=== PATIENT | male | born 1935 | race African-American/Black ===

== ENCOUNTER 2017-12-12 16:36 | Inpatient (IN) ==
[2017-12-12] MEDS ORDERED: MORPHINE 2 MG/1 ML SYRINGE IV STA (17:14)
[2017-12-12] MEDS ORDERED: methylPREDNISolone SOD SUC 125 MG/2 ML VIAL IV STA (17:14)
[2017-12-12] MEDS ORDERED: FUROSEMIDE 100 MG/10 ML VIAL IV STA (17:14)
[2017-12-12] MEDS ORDERED: ONDANSETRON 4 MG/2 ML VIAL IV STA (17:14)
[2017-12-12] MEDS ORDERED: NITROGLYCERIN 2% OINT 1 INCH/GM PACK TOP STA (17:14)
[2017-12-12] MEDS ORDERED: ASPIRIN 325 MG TABLET PO STA (17:14)
[2017-12-12] MEDS ORDERED: cefTRIAXone 1,000 MG in SODIUM CHLORIDE 0.9% 100 ML IV STA (17:14)
[2017-12-12 17:23] LABS: Basophils % 0.1 % (0.0-0.8); Eosinophils % 0.1 % (0.00-10.9); Hematocrit 42.5 VOL% (42.0-52.0); Hemoglobin 13.8 GM/DL (14.0-18.0); Immature Granulocytes % 1.4 %; Immature Granulocytes Absolute 0.11 #; Lymphocytes # 0.8 10*3/uL (1.4-4.0); Lymphocytes % 10.7 % (21.2-54.2); Mean Corpuscular HGB Conc 32.5 GM/DL (32-36); Mean Corpuscular Hemoglobin 33 PG (27-34); Mean Corpuscular Volume 102.7 FL (87-102); Mean Platelet Volume 10.9 FL (9.6-12.0); Monocytes % 12.8 % (1.7-12.7); Neutrophils # 5.7 10*3/uL (1.4-7.4); Neutrophils % 74.9 % (38.7-73.9); Platelet Count 207 T/CUMM (130-400); Red Blood Count 4.14 MC/CUMM (3.8-5.5); Red Cell Distribution Width 13.6 % (9.3-17.3); White Blood Count 7.7 T/CUMM (4-12)
[2017-12-12] MEDS ORDERED: ALBUTEROL 2.5 MG/3 ML NEB RESP TX SCH (17:30)
[2017-12-12 17:37] LABS: INR 1.1; PT Patient Result 11.2 SECS
[2017-12-12 17:39] LABS: ABG HCO3 35.2 MMOL/L (20-26); ABG Oxygen Saturation 92.7 % (95-100); ABG PCO2 54.2 MM HG (35-48); ABG PO2 69.6 MM HG (80-95); ABG TCO2 36.8 MMOL/L (23-27)
[2017-12-12 17:40] LABS: Alanine Aminotransferase 18 U/L (16-61); Albumin 3.2 G/DL (3.4-5.0); Alkaline Phosphatase 57 U/L (45-117); Aspartate Amino Transferase 12 U/L (0-37); Blood Urea Nitrogen 31 MG/DL (7-18); Calcium 8.4 MG/DL (8.5-10.1); Glucose 80 MG/DL (74-106); Osmolality,Calculated 280.7 MOS/KG (273-304); Potassium 3.9 MMOL/L (3.5-5.1); Sodium 138 MMOL/L (136-145); Total Protein 6.6 G/DL (6.4-8.3); Troponin I Only 0.033 NG/ML (0.00-0.045)
[2017-12-12] MEDS ORDERED: NITROGLYCERIN 2% OINT 1 INCH/GM PACK TOP ONE (17:41)
[2017-12-12] MEDS ORDERED: cefTRIAXone 1,000 MG VIAL ONE (17:41)
[2017-12-12] MEDS ORDERED: ONDANSETRON 4 MG/2 ML VIAL ONE (17:41)
[2017-12-12] MEDS ORDERED: FUROSEMIDE 40 MG/4 ML VIAL ONE (17:41)
[2017-12-12] MEDS ORDERED: MORPHINE 2 MG/1 ML SYRINGE ONE (17:41)
[2017-12-12] MEDS ORDERED: FUROSEMIDE 20 MG/2 ML VIAL ONE (17:41)
[2017-12-12] MEDS ORDERED: ASPIRIN 325 MG TABLET ONE (17:42)
[2017-12-12] MEDS ORDERED: methylPREDNISolone SOD SUC 125 MG/2 ML VIAL ONE (17:42)
[2017-12-12 19:38] LABS: Apearance,Urine CLEAR (Clear); Bilirubin,Urine Negative (Negative); Blood, Urine Small mg/dL (Negative); Glucose,Urine (UA) Negative (Negative); Ketones,Urine Negative (Negative); Nitrite,Urine Negative (Negative); Protein,Urine Negative; RBC,Urine 1 /HPF (0-4); Urine Color Yellow (Yellow); Urine Specific Gravity 1.009 (1.001-1.035); Urine Urobilinogen < 2.0 EU/DL (0.2-1.0); WBC,Urine <1 /HPF (0-6)
[2017-12-12] MEDS ORDERED: ALBUTEROL/IPRATROPIUM 3 ML NEB RESP TX STA (19:54)
[2017-12-12] MEDS ORDERED: COLCHICINE 0.6 MG TABLET PO STA (21:27)
[2017-12-12] MEDS ORDERED: ONDANSETRON 4 MG/2 ML VIAL IV PRN (21:27)
[2017-12-12] MEDS ORDERED: ZALEPLON 5 MG CAPSULE PO PRN (21:27)
[2017-12-12] MEDS ORDERED: MORPHINE 2 MG/1 ML SYRINGE IV PRN (21:27)
[2017-12-12] MEDS ORDERED: COLCHICINE 0.6 MG TABLET ONE (23:06)
[2017-12-12] MEDS: SODIUM CHLORIDE 0.9% 1,000 ML IV SCH (23:18)
[2017-12-13] MEDS: ALBUTEROL/IPRATROPIUM 3 ML NEB RESP TX SCH ×4 (03:08→20:05)
[2017-12-13 04:27] LABS: Hematocrit 40.3 VOL% (42.0-52.0); Hemoglobin 13.1 GM/DL (14.0-18.0); Immature Granulocytes % 0.9 %; Immature Granulocytes Absolute 0.06 #; Lymphocytes # 0.3 10*3/uL (1.4-4.0); Lymphocytes % 4.4 % (21.2-54.2); Mean Corpuscular HGB Conc 32.5 GM/DL (32-36); Mean Corpuscular Hemoglobin 34 PG (27-34); Mean Corpuscular Volume 103.3 FL (87-102); Mean Platelet Volume 10.5 FL (9.6-12.0); Monocytes # 0.2 10*3/uL (0.11-0.8); Monocytes % 3.2 % (1.7-12.7); Neutrophils % 91.5 % (38.7-73.9); Platelet Count 204 T/CUMM (130-400); Red Cell Distribution Width 13.4 % (9.3-17.3); White Blood Count 6.5 T/CUMM (4-12)
[2017-12-13 05:02] LABS: Osmolality,Calculated 281.1 MOS/KG (273-304); Potassium 3.9 MMOL/L (3.5-5.1); Troponin I Only 0.031 NG/ML (0.00-0.045)
[2017-12-13 05:34] LABS: Lymphocytes 3 % (20-55); Segmented Neutrophils 93 % (50-85); Total Cells Counted 100
[2017-12-13 05:35] LABS: Giant Platelets Few; Hypochromasia 1+; Platelet Estimate Normal
[2017-12-13] MEDS: POTASSIUM CHLORIDE 20 MEQ TABLET PO SCH (10:31)
[2017-12-13] MEDS: CARVEDILOL 12.5 MG TABLET PO SCH ×2 (10:32→16:55)
[2017-12-13] MEDS: COLCHICINE 0.6 MG TABLET PO SCH (10:32)
[2017-12-13] MEDS: FUROSEMIDE 40 MG TABLET PO SCH (10:32)
[2017-12-13] MEDS: PANTOPRAZOLE 40 MG TABLET PO SCH (10:32)
[2017-12-13] MEDS: LOSARTAN 50 MG TABLET PO SCH (10:32)
[2017-12-13] MEDS: CHOLECALCIFEROL 1,000 UNIT TABLET PO SCH (10:32)
[2017-12-13] MEDS: SPIRONOLACTONE 25 MG TABLET PO SCH (10:32)
[2017-12-13] MEDS: SODIUM CHLORIDE 0.9% 1,000 ML IV SCH (16:56)
[2017-12-13] MEDS: methylPREDNISolone SOD SUC 40 MG/1 ML VIAL IV SCH (18:59)
[2017-12-13] MEDS: cefTRIAXone 1,000 MG in SYRINGE 1 EACH IV SCH (18:59)
[2017-12-13] MEDS ORDERED: HYDROCORTISONE 25 MG SUPP RECTAL PRN (20:10)
[2017-12-14] MEDS: ALBUTEROL/IPRATROPIUM 3 ML NEB RESP TX SCH ×4 (01:16→18:30)
[2017-12-14] MEDS: methylPREDNISolone SOD SUC 40 MG/1 ML VIAL IV SCH (01:40)
[2017-12-14 03:37] LABS: Calcium 8.5 MG/DL (8.5-10.1); Osmolality,Calculated 285.7 MOS/KG (273-304); Potassium 4.5 MMOL/L (3.5-5.1)
[2017-12-14] MEDS: CARVEDILOL 12.5 MG TABLET PO SCH ×2 (09:50→17:04)
[2017-12-14] MEDS: CHOLECALCIFEROL 1,000 UNIT TABLET PO SCH (09:50)
[2017-12-14] MEDS: FUROSEMIDE 40 MG TABLET PO SCH (09:50)
[2017-12-14] MEDS: PANTOPRAZOLE 40 MG TABLET PO SCH (09:50)
[2017-12-14] MEDS: LOSARTAN 50 MG TABLET PO SCH (09:50)
[2017-12-14] MEDS: COLCHICINE 0.6 MG TABLET PO SCH (09:50)
[2017-12-14] MEDS: POTASSIUM CHLORIDE 20 MEQ TABLET PO SCH (09:50)
[2017-12-14] MEDS: SPIRONOLACTONE 25 MG TABLET PO SCH (09:50)
[2017-12-14] MEDS: POLYETHYLENE GLYCOL POWDER 17 GM PACK PO SCH (09:50)
[2017-12-14] MEDS: cefTRIAXone 1,000 MG in SYRINGE 1 EACH IV SCH (17:04)
[2017-12-14] MEDS: SODIUM CHLORIDE 0.9% 1,000 ML IV SCH (20:15)
[2017-12-15] MEDS: ALBUTEROL/IPRATROPIUM 3 ML NEB RESP TX SCH ×2 (00:32→07:42)
[2017-12-15 08:32] LABS: Basophils % 0.1 % (0.0-0.8); Hematocrit 38.5 VOL% (42.0-52.0); Hemoglobin 12.4 GM/DL (14.0-18.0); Immature Granulocytes % 1.5 %; Immature Granulocytes Absolute 0.17 #; Lymphocytes # 1.1 10*3/uL (1.4-4.0); Lymphocytes % 9.3 % (21.2-54.2); Mean Corpuscular HGB Conc 32.2 GM/DL (32-36); Mean Corpuscular Hemoglobin 33 PG (27-34); Mean Corpuscular Volume 102.4 FL (87-102); Mean Platelet Volume 10.8 FL (9.6-12.0); Monocytes # 1.6 10*3/uL (0.11-0.8); Neutrophils # 8.5 10*3/uL (1.4-7.4); Neutrophils % 75.1 % (38.7-73.9); Platelet Count 175 T/CUMM (130-400); Red Blood Count 3.76 MC/CUMM (3.8-5.5); Red Cell Distribution Width 13.8 % (9.3-17.3); White Blood Count 11.3 T/CUMM (4-12)
[2017-12-15] MEDS: SODIUM CHLORIDE 0.9% 1,000 ML IV SCH (08:42)
[2017-12-15] MEDS: LOSARTAN 50 MG TABLET PO SCH (08:43)
[2017-12-15] MEDS: SPIRONOLACTONE 25 MG TABLET PO SCH (08:43)
[2017-12-15] MEDS: COLCHICINE 0.6 MG TABLET PO SCH (08:43)
[2017-12-15] MEDS: CARVEDILOL 12.5 MG TABLET PO SCH (08:43)
[2017-12-15] MEDS: FUROSEMIDE 40 MG TABLET PO SCH (08:44)
[2017-12-15] MEDS: POTASSIUM CHLORIDE 20 MEQ TABLET PO SCH (08:44)
[2017-12-15] MEDS: POLYETHYLENE GLYCOL POWDER 17 GM PACK PO SCH (08:44)
[2017-12-15] MEDS: CHOLECALCIFEROL 1,000 UNIT TABLET PO SCH (08:45)
[2017-12-15] MEDS: PANTOPRAZOLE 40 MG TABLET PO SCH (08:45)
[2017-12-15 12:58] VITALS: BP 123/62
== END 2017-12-15 14:45 | disposition home or self-care (01) | DRG 813 ==
LOC: EDBD → EDUNIT# → N.ED 16:36 → SUATTDRO 19:43 → N.EDINP 19:43 → N.2E 12-13 07:13
PROVIDERS: ADMIT Internal Medicine; ATTEND Pediatrics

== ENCOUNTER 2020-08-22 14:14 | Inpatient (IN) ==
[2020-08-22 16:48] LABS: Basophils % 0.3 % (0.0-0.8); Hematocrit 37.8 VOL% (42.0-52.0); Hemoglobin 12.1 GM/DL (14.0-18.0); Immature Granulocytes % 0.3 %; Immature Granulocytes Absolute 0.03 #; Lymphocytes # 1.4 10*3/uL (1.4-4.0); Lymphocytes % 15.6 % (21.2-54.2); Mean Corpuscular Volume 106.5 FL (87-102); Mean Platelet Volume 10.9 FL (9.6-12.0); Monocytes % 9.4 % (1.7-12.7); Neutrophils % 74.4 % (38.7-73.9); Platelet Count 195 T/CUMM (130-400); Red Blood Count 3.55 MC/CUMM (3.8-5.5); Red Cell Distribution Width 14.3 % (9.3-17.3); White Blood Count 8.6 T/CUMM (4-12)
[2020-08-22 17:24] LABS: Albumin 3.1 G/DL (3.4-5.0); Bilirubin,Total 0.7 MG/DL (0.2-1.0); Calcium 8.6 MG/DL (8.5-10.1); Total Protein 6.8 G/DL (6.4-8.3)
[2020-08-22 17:51] LABS: Bacteria,Urine Occasional /HPF (Few); Bilirubin,Urine Negative (Negative); Blood, Urine Small mg/dL (Negative); Glucose,Urine (UA) Negative (Negative); Hyaline Casts,Urine 3 /LPF (0-3); Ketones,Urine Negative (Negative); Mucus,Urine Occasional /LPF (Occasional); Nitrite,Urine Negative (Negative); Protein,Urine >=500 MG/DL; RBC,Urine 2 /HPF (0-4); Squamous Epithelial Cell,Urine Occasional /HPF (0-10); Urine Appearance CLEAR (Clear); Urine Color Amber (Yellow); Urine Specific Gravity 1.029 (1.001-1.035); WBC,Urine 2 /HPF (0-6)
[2020-08-22] MEDS ORDERED: GLUCAGON 1 MG VIAL IM PRN (22:12)
[2020-08-22] MEDS ORDERED: ONDANSETRON 4 MG/2 ML VIAL IV PRN (22:12)
[2020-08-22] MEDS ORDERED: DEXTROSE 50% 25 GM/50 ML VIAL IV PRN (22:12)
[2020-08-22] MEDS ORDERED: ACETAMINOPHEN 325 MG TABLET PO PRN (22:12)
[2020-08-22] MEDS ORDERED: CETIRIZINE 10 MG TABLET PO PRN (22:18)
[2020-08-22] MEDS ORDERED: NICOTINE 21 MG/24 HR PATCH TRANSDERM PRN (22:25)
[2020-08-22] MEDS ORDERED: LORazepam 2 MG/1 ML VIAL IV PRN (22:25)
[2020-08-22] MEDS: cefTRIAXone 1,000 MG in SYRINGE 1 EACH IV SCH (23:15)
[2020-08-22] MEDS: AZITHROMYCIN INJ 500 MG in SODIUM CHLORIDE 0.9% 250 ML IV SCH (23:20)
[2020-08-23] MEDS ORDERED: DEXTROSE 50% 25 GM/50 ML SYRINGE IV PRN (00:31)
[2020-08-23 05:39] LABS: Basophils % 0.3 % (0.0-0.8); Hematocrit 33.7 VOL% (42.0-52.0); Hemoglobin 10.6 GM/DL (14.0-18.0); Immature Granulocytes % 0.3 %; Immature Granulocytes Absolute 0.02 #; Lymphocytes # 1.2 10*3/uL (1.4-4.0); Lymphocytes % 15.6 % (21.2-54.2); Mean Corpuscular HGB Conc 31.5 GM/DL (32-36); Mean Platelet Volume 10.9 FL (9.6-12.0); Monocytes % 9.8 % (1.7-12.7); Platelet Count 174 T/CUMM (130-400); Red Blood Count 3.15 MC/CUMM (3.8-5.5); Red Cell Distribution Width 14.3 % (9.3-17.3); White Blood Count 7.7 T/CUMM (4-12)
[2020-08-23 05:50] LABS: Albumin 2.7 G/DL (3.4-5.0); Bilirubin,Total 0.7 MG/DL (0.2-1.0); Calcium 8.5 MG/DL (8.5-10.1); Osmolality,Calculated 283.1 MOS/KG (273-304); Risk Ratio 3.21; Total Protein 6.5 G/DL (6.4-8.3); VLDL CHOLESTEROL 17.6 MG/DL
[2020-08-23] MEDS: FUROSEMIDE 40 MG/4 ML VIAL IV SCH ×2 (07:55→16:09)
[2020-08-23] MEDS ORDERED: NON-FORMULARY MEDICATION (Losartan 100 mg Tablet) PO SCH (09:00)
[2020-08-23] MEDS: ZINC SULFATE 220 MG CAPSULE PO SCH (09:05)
[2020-08-23] MEDS: CYANOCOBALAMIN 1000 MCG/1 ML VIAL IM SCH (09:05)
[2020-08-23] MEDS: CHOLECALCIFEROL 1,000 UNIT TABLET PO SCH (09:06)
[2020-08-23] MEDS: ASCORBIC ACID 500 MG TABLET PO SCH ×2 (09:06→20:38)
[2020-08-23] MEDS: THIAMINE 100 MG TABLET PO SCH (09:06)
[2020-08-23] MEDS: FOLIC ACID 1 MG TABLET PO SCH (09:06)
[2020-08-23] MEDS: APIXABAN 2.5 MG TABLET PO SCH ×2 (09:06→20:40)
[2020-08-23] MEDS: LOSARTAN 50 MG TABLET PO SCH (09:07)
[2020-08-23] MEDS: MULTIVITAMIN (CENTRUM) TABLET PO SCH (09:07)
[2020-08-23] MEDS: carvediloL 25 MG TABLET PO SCH ×2 (09:07→20:38)
[2020-08-23] MEDS: SPIRONOLACTONE 25 MG TABLET PO SCH (09:07)
[2020-08-23] MEDS: DEXAMETHASONE 4 MG/1 ML VIAL IV SCH (09:08)
[2020-08-23] MEDS: PANTOPRAZOLE 40 MG TABLET PO SCH (09:11)
[2020-08-23] MEDS: AZITHROMYCIN INJ 500 MG in SODIUM CHLORIDE 0.9% 250 ML IV SCH (22:57)
[2020-08-23] MEDS: cefTRIAXone 1,000 MG in SYRINGE 1 EACH IV SCH (22:57)
[2020-08-24] MEDS: ALBUTEROL INHALER 18 GM INH SCH ×4 (00:32→18:15)
[2020-08-24 05:45] LABS: Basophils % 0.1 % (0.0-0.8); Hemoglobin 10.6 GM/DL (14.0-18.0); Immature Granulocytes % 0.5 %; Immature Granulocytes Absolute 0.05 #; Lymphocytes # 0.8 10*3/uL (1.4-4.0); Lymphocytes % 7.1 % (21.2-54.2); Mean Corpuscular HGB Conc 32.1 GM/DL (32-36); Mean Corpuscular Volume 107.1 FL (87-102); Mean Platelet Volume 10.6 FL (9.6-12.0); Monocytes % 6.3 % (1.7-12.7); Platelet Count 166 T/CUMM (130-400); Red Blood Count 3.08 MC/CUMM (3.8-5.5); Red Cell Distribution Width 14.4 % (9.3-17.3); White Blood Count 11.1 T/CUMM (4-12)
[2020-08-24 05:59] LABS: INR 1.1; PT Patient Result 11.9 SECS (9.8-11.9)
[2020-08-24 06:35] LABS: Calcium 8.6 MG/DL (8.5-10.1); Osmolality,Calculated 285.3 MOS/KG (273-304)
[2020-08-24 06:53] LABS: Troponin I 0.032 NG/ML (0.00-0.045)
[2020-08-24 06:54] LABS: Ferritin 170.1 ng/ml (26-388)
[2020-08-24 08:03] LABS: Sedimentation Rate-Westergren 37 MM/HR (0-20)
[2020-08-24] MEDS: DEXAMETHASONE 4 MG/1 ML VIAL IV SCH (09:38)
[2020-08-24] MEDS: ZINC SULFATE 220 MG CAPSULE PO SCH (09:40)
[2020-08-24] MEDS: PANTOPRAZOLE 40 MG TABLET PO SCH (09:40)
[2020-08-24] MEDS: THIAMINE 100 MG TABLET PO SCH (09:40)
[2020-08-24] MEDS: FUROSEMIDE 40 MG/4 ML VIAL IV SCH ×2 (09:40→16:24)
[2020-08-24] MEDS: CHOLECALCIFEROL 1,000 UNIT TABLET PO SCH (09:40)
[2020-08-24] MEDS: carvediloL 25 MG TABLET PO SCH (09:40)
[2020-08-24] MEDS: MULTIVITAMIN (CENTRUM) TABLET PO SCH (09:40)
[2020-08-24] MEDS: APIXABAN 2.5 MG TABLET PO SCH ×2 (09:40→20:45)
[2020-08-24] MEDS: CYANOCOBALAMIN 1000 MCG/1 ML VIAL IM SCH (09:40)
[2020-08-24] MEDS: SPIRONOLACTONE 25 MG TABLET PO SCH (09:40)
[2020-08-24] MEDS: FOLIC ACID 1 MG TABLET PO SCH (09:40)
[2020-08-24] MEDS: ASCORBIC ACID 500 MG TABLET PO SCH ×2 (09:40→20:46)
[2020-08-24] MEDS: LOSARTAN 50 MG TABLET PO SCH (10:08)
[2020-08-24] MEDS: AZITHROMYCIN 250 MG TABLET PO SCH (20:46)
[2020-08-24] MEDS: cefTRIAXone 1,000 MG in SYRINGE 1 EACH IV SCH (22:02)
[2020-08-25] MEDS: ALBUTEROL INHALER 18 GM INH SCH ×4 (00:25→19:25)
[2020-08-25 06:03] LABS: Basophils % 0.1 % (0.0-0.8); Hematocrit 33.5 VOL% (42.0-52.0); Hemoglobin 10.6 GM/DL (14.0-18.0); Immature Granulocytes % 0.5 %; Immature Granulocytes Absolute 0.06 #; Lymphocytes # 0.8 10*3/uL (1.4-4.0); Lymphocytes % 5.9 % (21.2-54.2); Mean Corpuscular HGB Conc 31.6 GM/DL (32-36); Mean Corpuscular Volume 106.3 FL (87-102); Mean Platelet Volume 10.8 FL (9.6-12.0); Monocytes % 4.4 % (1.7-12.7); Neutrophils % 89.1 % (38.7-73.9); Platelet Count 172 T/CUMM (130-400); Red Blood Count 3.15 MC/CUMM (3.8-5.5); Red Cell Distribution Width 14.6 % (9.3-17.3); White Blood Count 12.8 T/CUMM (4-12)
[2020-08-25 06:14] LABS: INR 1.1; PT Patient Result 11.9 SECS (9.8-11.9)
[2020-08-25 06:36] LABS: Calcium 8.6 MG/DL (8.5-10.1); Ferritin 205.1 ng/ml (26-388); Osmolality,Calculated 284.4 MOS/KG (273-304)
[2020-08-25] MEDS: CHOLECALCIFEROL 1,000 UNIT TABLET PO SCH (09:15)
[2020-08-25] MEDS: DEXAMETHASONE 4 MG/1 ML VIAL IV SCH (09:15)
[2020-08-25] MEDS: MULTIVITAMIN (CENTRUM) TABLET PO SCH (09:15)
[2020-08-25] MEDS: LOSARTAN 50 MG TABLET PO SCH (09:15)
[2020-08-25] MEDS: SPIRONOLACTONE 25 MG TABLET PO SCH (09:15)
[2020-08-25] MEDS: ASCORBIC ACID 500 MG TABLET PO SCH ×2 (09:15→21:08)
[2020-08-25] MEDS: APIXABAN 2.5 MG TABLET PO SCH ×2 (09:15→21:09)
[2020-08-25] MEDS: THIAMINE 100 MG TABLET PO SCH (09:15)
[2020-08-25] MEDS: ZINC SULFATE 220 MG CAPSULE PO SCH (09:15)
[2020-08-25] MEDS: CYANOCOBALAMIN 1000 MCG/1 ML VIAL IM SCH (09:15)
[2020-08-25] MEDS: PANTOPRAZOLE 40 MG TABLET PO SCH (09:15)
[2020-08-25] MEDS: FOLIC ACID 1 MG TABLET PO SCH (09:15)
[2020-08-25] MEDS: FUROSEMIDE 40 MG TABLET PO SCH (16:55)
[2020-08-25] MEDS: AZITHROMYCIN 250 MG TABLET PO SCH (21:09)
[2020-08-25] MEDS: guaiFENesin/DM ER 600-30 MG TABLET PO PRN (21:09)
[2020-08-25] MEDS: cefTRIAXone 1,000 MG in SYRINGE 1 EACH IV SCH (23:24)
[2020-08-26] MEDS: ALBUTEROL INHALER 18 GM INH SCH ×4 (01:05→18:08)
[2020-08-26 04:49] LABS: Basophils % 0.1 % (0.0-0.8); Hematocrit 34.6 VOL% (42.0-52.0); Hemoglobin 10.9 GM/DL (14.0-18.0); Immature Granulocytes % 0.7 %; Immature Granulocytes Absolute 0.09 #; Lymphocytes # 0.7 10*3/uL (1.4-4.0); Lymphocytes % 5.5 % (21.2-54.2); Mean Corpuscular HGB Conc 31.5 GM/DL (32-36); Mean Corpuscular Volume 107.8 FL (87-102); Mean Platelet Volume 10.9 FL (9.6-12.0); Monocytes % 6.3 % (1.7-12.7); Neutrophils % 87.4 % (38.7-73.9); Platelet Count 189 T/CUMM (130-400); Red Blood Count 3.21 MC/CUMM (3.8-5.5); Red Cell Distribution Width 14.4 % (9.3-17.3); White Blood Count 12.7 T/CUMM (4-12)
[2020-08-26 04:51] LABS: INR 1.1; PT Patient Result 11.9 SECS (9.8-11.9)
[2020-08-26 05:12] LABS: Calcium 8.5 MG/DL (8.5-10.1); Osmolality,Calculated 283.7 MOS/KG (273-304)
[2020-08-26 05:18] LABS: Calcium 8.4 MG/DL (8.5-10.1); Ferritin 173.8 ng/ml (26-388); Osmolality,Calculated 284.7 MOS/KG (273-304)
[2020-08-26] MEDS: FUROSEMIDE 40 MG TABLET PO SCH ×2 (09:53→16:58)
[2020-08-26] MEDS: APIXABAN 2.5 MG TABLET PO SCH ×2 (09:54→20:06)
[2020-08-26] MEDS: SPIRONOLACTONE 25 MG TABLET PO SCH (09:54)
[2020-08-26] MEDS: FOLIC ACID 1 MG TABLET PO SCH (09:54)
[2020-08-26] MEDS: THIAMINE 100 MG TABLET PO SCH (09:54)
[2020-08-26] MEDS: CHOLECALCIFEROL 1,000 UNIT TABLET PO SCH (09:54)
[2020-08-26] MEDS: MULTIVITAMIN (CENTRUM) TABLET PO SCH (09:54)
[2020-08-26] MEDS: CYANOCOBALAMIN 1000 MCG/1 ML VIAL IM SCH (09:54)
[2020-08-26] MEDS: DEXAMETHASONE 4 MG/1 ML VIAL IV SCH (10:00)
[2020-08-26] MEDS: ASCORBIC ACID 500 MG TABLET PO SCH (10:00)
[2020-08-26] MEDS: carvediloL 12.5 MG TABLET PO SCH (16:58)
[2020-08-26] MEDS: AZITHROMYCIN 250 MG TABLET PO SCH (20:06)
[2020-08-26] MEDS: guaiFENesin/DM ER 600-30 MG TABLET PO PRN (20:06)
[2020-08-26] MEDS: cefTRIAXone 1,000 MG in SYRINGE 1 EACH IV SCH (22:10)
[2020-08-27] MEDS: ALBUTEROL INHALER 18 GM INH SCH ×2 (00:26→06:05)
[2020-08-27 06:50] LABS: Basophils % 0.1 % (0.0-0.8); Hematocrit 34.4 VOL% (42.0-52.0); Hemoglobin 10.9 GM/DL (14.0-18.0); Immature Granulocytes % 0.4 %; Immature Granulocytes Absolute 0.04 #; Lymphocytes # 1.4 10*3/uL (1.4-4.0); Lymphocytes % 15.4 % (21.2-54.2); Mean Corpuscular HGB Conc 31.7 GM/DL (32-36); Mean Corpuscular Volume 106.8 FL (87-102); Mean Platelet Volume 11.4 FL (9.6-12.0); Monocytes % 11.1 % (1.7-12.7); Platelet Count 185 T/CUMM (130-400); Red Blood Count 3.22 MC/CUMM (3.8-5.5); Red Cell Distribution Width 14.6 % (9.3-17.3); White Blood Count 9.3 T/CUMM (4-12)
[2020-08-27 07:19] LABS: Calcium 8.2 MG/DL (8.5-10.1); Ferritin 214.2 ng/ml (26-388); Osmolality,Calculated 287.5 MOS/KG (273-304)
[2020-08-27 08:23] VITALS: BP 109/58
[2020-08-27] MEDS: FOLIC ACID 1 MG TABLET PO SCH (08:43)
[2020-08-27] MEDS: APIXABAN 2.5 MG TABLET PO SCH (08:43)
[2020-08-27] MEDS: SPIRONOLACTONE 25 MG TABLET PO SCH (08:43)
[2020-08-27] MEDS: THIAMINE 100 MG TABLET PO SCH (08:43)
[2020-08-27] MEDS: CHOLECALCIFEROL 1,000 UNIT TABLET PO SCH (08:44)
[2020-08-27] MEDS: carvediloL 12.5 MG TABLET PO SCH (08:44)
[2020-08-27] MEDS: CYANOCOBALAMIN 1000 MCG/1 ML VIAL IM SCH (08:44)
[2020-08-27] MEDS: MULTIVITAMIN (CENTRUM) TABLET PO SCH (08:44)
[2020-08-27] MEDS: FUROSEMIDE 40 MG TABLET PO SCH (08:44)
[2020-08-27] MEDS ORDERED: LOSARTAN 25 MG TABLET PO SCH (09:00)
[2020-08-27] MEDS ORDERED: DEXAMETHASONE 4 MG TABLET PO SCH (09:00)
== END 2020-08-27 11:55 | disposition home health service (06) | DRG 291 ==
LOC: N.ED 14:14 → N.EDINP 22:11 → N.2E 08-23 12:06 → N.5E 08-25 18:12
PROVIDERS: ADMIT Internal Medicine; ATTEND Internal Medicine

== ENCOUNTER 2021-01-27 16:47 | Inpatient (IN) ==
[2021-01-27 17:56] LABS: Basophils % 0.1 % (0.0-0.8); Hematocrit 33.2 VOL% (42.0-52.0); Hemoglobin 10.4 GM/DL (14.0-18.0); Immature Granulocytes % 0.4 %; Immature Granulocytes Absolute 0.03 #; Lymphocytes # 0.9 10*3/uL (1.4-4.0); Lymphocytes % 12.3 % (21.2-54.2); Mean Corpuscular HGB Conc 31.3 GM/DL (32-36); Mean Corpuscular Volume 107.4 FL (87-102); Mean Platelet Volume 10.5 FL (9.6-12.0); Monocytes % 13.9 % (1.7-12.7); Neutrophils % 73.3 % (38.7-73.9); Platelet Count 276 T/CUMM (130-400); Red Blood Count 3.09 MC/CUMM (3.8-5.5); Red Cell Distribution Width 15.1 % (9.3-17.3); White Blood Count 7.3 T/CUMM (4-12)
[2021-01-27 18:14] LABS: INR 1.2; PT Patient Result 12.4 SECS (9.8-11.9)
[2021-01-27 18:18] LABS: Albumin 2.6 G/DL (3.4-5.0); Bilirubin,Total 0.4 MG/DL (0.2-1.0); Calcium 8.7 MG/DL (8.5-10.1); Osmolality,Calculated 272.1 MOS/KG (273-304); Potassium 3.9 MMOL/L (3.5-5.1); Total Protein 7.1 G/DL (5.0-7.5)
[2021-01-27] MEDS ORDERED: ONDANSETRON 4 MG/2 ML VIAL IV ONE (19:18)
[2021-01-27] MEDS ORDERED: MORPHINE 4 MG/1 ML VIAL IV STA (19:18)
[2021-01-27] MEDS ORDERED: DEXTROSE 50% 25 GM/50 ML VIAL IV PRN (23:33)
[2021-01-27] MEDS ORDERED: ONDANSETRON 4 MG/2 ML VIAL IV PRN (23:33)
[2021-01-27] MEDS ORDERED: GLUCAGON 1 MG VIAL IM PRN (23:33)
[2021-01-27] MEDS ORDERED: hydrALAZINE 20 MG/1 ML VIAL IV PRN (23:33)
[2021-01-27] MEDS ORDERED: MORPHINE 4 MG/1 ML VIAL IV PRN (23:33)
[2021-01-27] MEDS ORDERED: DOCUSATE SODIUM 100 MG CAPSULE PO PRN (23:33)
[2021-01-27] MEDS ORDERED: ACETAMINOPHEN 325 MG TABLET PO PRN (23:33)
[2021-01-27] MEDS ORDERED: FUROSEMIDE 40 MG/4 ML VIAL IV ONE (23:37)
[2021-01-27] MEDS ORDERED: ALBUTEROL 2.5 MG/3 ML NEB RESP TX PRN (23:38)
[2021-01-28] MEDS: carvediloL 12.5 MG TABLET PO SCH ×3 (00:33→16:03)
[2021-01-28] MEDS: APIXABAN 2.5 MG TABLET PO SCH ×3 (00:33→21:09)
[2021-01-28] MEDS ORDERED: METHOCARBAMOL 750 MG TABLET PO PRN (02:06)
[2021-01-28 06:11] LABS: Basophils % 0.7 % (0.0-0.8); Hematocrit 30.7 VOL% (42.0-52.0); Hemoglobin 9.6 GM/DL (14.0-18.0); Immature Granulocytes % 0.3 %; Immature Granulocytes Absolute 0.02 #; Lymphocytes # 1.3 10*3/uL (1.4-4.0); Lymphocytes % 22.1 % (21.2-54.2); Mean Corpuscular HGB Conc 31.3 GM/DL (32-36); Mean Corpuscular Volume 106.2 FL (87-102); Mean Platelet Volume 10.2 FL (9.6-12.0); Monocytes % 17.4 % (1.7-12.7); Neutrophils % 59.5 % (38.7-73.9); Platelet Count 238 T/CUMM (130-400); Red Blood Count 2.89 MC/CUMM (3.8-5.5); Red Cell Distribution Width 14.8 % (9.3-17.3); White Blood Count 5.9 T/CUMM (4-12)
[2021-01-28 06:38] LABS: Calcium 8.4 MG/DL (8.5-10.1); Potassium 3.5 MMOL/L (3.5-5.1)
[2021-01-28 07:02] LABS: Anisocytosis 2+; Eosinophils 1 % (0-10); Lymphocytes 21 % (20-55); Macrocytosis 2+; Platelet Estimate Normal; Segmented Neutrophils 59 % (50-85); Total Cells Counted 100
[2021-01-28] MEDS: ALBUTEROL/IPRATROPIUM 3 ML NEB RESP TX SCH ×4 (07:05→19:21)
[2021-01-28] MEDS: CHOLECALCIFEROL 1,000 UNIT TABLET PO SCH (09:23)
[2021-01-28] MEDS: POTASSIUM CHLORIDE 20 MEQ TABLET PO SCH (09:24)
[2021-01-28] MEDS: LOSARTAN 25 MG TABLET PO SCH (09:24)
[2021-01-28] MEDS: FOLIC ACID 1 MG TABLET PO SCH (09:24)
[2021-01-28] MEDS: FUROSEMIDE 40 MG/4 ML VIAL IV SCH ×2 (09:31→15:54)
[2021-01-28] MEDS: THIAMINE 100 MG TABLET PO SCH (11:27)
[2021-01-29 05:47] LABS: Basophils % 0.4 % (0.0-0.8); Hematocrit 29.9 VOL% (42.0-52.0); Hemoglobin 9.3 GM/DL (14.0-18.0); Immature Granulocytes % 0.4 %; Immature Granulocytes Absolute 0.02 #; Mean Corpuscular HGB Conc 31.1 GM/DL (32-36); Mean Corpuscular Volume 107.2 FL (87-102); Mean Platelet Volume 10.9 FL (9.6-12.0); Monocytes % 17.8 % (1.7-12.7); Neutrophils % 62.4 % (38.7-73.9); Platelet Count 236 T/CUMM (130-400); Red Blood Count 2.79 MC/CUMM (3.8-5.5); Red Cell Distribution Width 14.6 % (9.3-17.3); White Blood Count 5.2 T/CUMM (4-12)
[2021-01-29 06:00] LABS: Calcium 8.7 MG/DL (8.5-10.1); Osmolality,Calculated 270.4 MOS/KG (273-304); Potassium 3.7 MMOL/L (3.5-5.1)
[2021-01-29 07:23] LABS: Folate 13.7 NG/ML (5.38-24.0)
[2021-01-29] MEDS: ALBUTEROL/IPRATROPIUM 3 ML NEB RESP TX SCH ×4 (07:27→19:17)
[2021-01-29 08:06] LABS: Anisocytosis 1+; Lymphocytes 21 % (20-55); Macrocytosis 1+; Platelet Estimate Normal; Segmented Neutrophils 61 % (50-85); Total Cells Counted 100
[2021-01-29] MEDS: CHOLECALCIFEROL 1,000 UNIT TABLET PO SCH (09:30)
[2021-01-29] MEDS: FOLIC ACID 1 MG TABLET PO SCH (09:31)
[2021-01-29] MEDS: POTASSIUM CHLORIDE 20 MEQ TABLET PO SCH (09:31)
[2021-01-29] MEDS: carvediloL 12.5 MG TABLET PO SCH ×2 (09:31→16:56)
[2021-01-29] MEDS: THIAMINE 100 MG TABLET PO SCH (09:31)
[2021-01-29] MEDS: LOSARTAN 25 MG TABLET PO SCH (09:32)
[2021-01-29] MEDS: APIXABAN 2.5 MG TABLET PO SCH ×2 (09:32→21:02)
[2021-01-29] MEDS: FUROSEMIDE 40 MG/4 ML VIAL IV SCH ×2 (09:40→17:01)
[2021-01-29] MEDS: DICLOFENAC 1% GEL 100 GM TUBE TOP SCH ×2 (14:23→21:02)
[2021-01-30 05:31] LABS: Basophils % 0.4 % (0.0-0.8); Hematocrit 29.1 VOL% (42.0-52.0); Hemoglobin 9.4 GM/DL (14.0-18.0); Immature Granulocytes % 0.4 %; Immature Granulocytes Absolute 0.02 #; Lymphocytes % 21.1 % (21.2-54.2); Mean Corpuscular HGB Conc 32.3 GM/DL (32-36); Mean Corpuscular Volume 103.6 FL (87-102); Mean Platelet Volume 10.7 FL (9.6-12.0); Monocytes % 16.8 % (1.7-12.7); Neutrophils % 61.3 % (38.7-73.9); Platelet Count 221 T/CUMM (130-400); Red Blood Count 2.81 MC/CUMM (3.8-5.5); Red Cell Distribution Width 14.6 % (9.3-17.3); White Blood Count 4.9 T/CUMM (4-12)
[2021-01-30 05:53] LABS: Hypochromasia 1+; Lymphocytes 26 % (20-55); Microcytosis 1+; Platelet Estimate Adequate; Segmented Neutrophils 61 % (50-85); Total Cells Counted 100
[2021-01-30 05:54] LABS: Calcium 8.5 MG/DL (8.5-10.1); Osmolality,Calculated 275.1 MOS/KG (273-304); Potassium 3.6 MMOL/L (3.5-5.1)
[2021-01-30] MEDS ORDERED: MAGNESIUM SULF RIDER 2 GM in PREMIX 1 EACH IV ONE (08:30)
[2021-01-30] MEDS: carvediloL 12.5 MG TABLET PO SCH ×2 (08:39→18:28)
[2021-01-30] MEDS: LOSARTAN 25 MG TABLET PO SCH (08:39)
[2021-01-30] MEDS: FUROSEMIDE 40 MG/4 ML VIAL IV SCH ×4 (08:39→18:32)
[2021-01-30] MEDS: CHOLECALCIFEROL 1,000 UNIT TABLET PO SCH (08:40)
[2021-01-30] MEDS: FOLIC ACID 1 MG TABLET PO SCH (08:40)
[2021-01-30] MEDS: THIAMINE 100 MG TABLET PO SCH (08:40)
[2021-01-30] MEDS: POTASSIUM CHLORIDE 20 MEQ TABLET PO SCH (08:40)
[2021-01-30] MEDS: DICLOFENAC 1% GEL 100 GM TUBE TOP SCH ×3 (08:40→21:44)
[2021-01-30] MEDS: APIXABAN 2.5 MG TABLET PO SCH ×2 (08:40→21:44)
[2021-01-30] MEDS: ALBUTEROL/IPRATROPIUM 3 ML NEB RESP TX SCH ×4 (08:58→19:31)
[2021-01-30] MEDS ORDERED: DOCUSATE SODIUM 100 MG CAPSULE PO PRN (16:09)
[2021-01-30] MEDS ORDERED: POTASSIUM CHLORIDE 20 MEQ TABLET PO ONE (17:00)
[2021-01-30] MEDS ORDERED: MAGNESIUM CITRATE 300 ML BOTTLE PO ONE (17:00)
[2021-01-30] MEDS: SENNA 8.6 MG TABLET PO SCH (21:44)
[2021-01-30] MEDS: POLYETHYLENE GLYCOL POWDER 17 GM PACK PO SCH (21:44)
[2021-01-31 03:57] LABS: Basophils % 0.2 % (0.0-0.8); Hematocrit 29.6 VOL% (42.0-52.0); Hemoglobin 9.6 GM/DL (14.0-18.0); Immature Granulocytes % 0.3 %; Immature Granulocytes Absolute 0.02 #; Lymphocytes # 1.1 10*3/uL (1.4-4.0); Lymphocytes % 18.1 % (21.2-54.2); Mean Corpuscular HGB Conc 32.4 GM/DL (32-36); Mean Corpuscular Volume 105.7 FL (87-102); Mean Platelet Volume 10.6 FL (9.6-12.0); Monocytes % 16.4 % (1.7-12.7); Platelet Count 222 T/CUMM (130-400); Red Cell Distribution Width 14.8 % (9.3-17.3)
[2021-01-31 04:20] LABS: Hypochromasia 1+; Lymphocytes 17 % (20-55); Segmented Neutrophils 72 % (50-85); Total Cells Counted 100
[2021-01-31 04:21] LABS: Atypical Lymphocytes Few; Macrocytosis 1+
[2021-01-31 04:30] LABS: Calcium 8.5 MG/DL (8.5-10.1); Osmolality,Calculated 273.4 MOS/KG (273-304); Potassium 4.7 MMOL/L (3.5-5.1)
[2021-01-31] MEDS: ALBUTEROL/IPRATROPIUM 3 ML NEB RESP TX SCH ×2 (07:50→20:07)
[2021-01-31] MEDS: LOSARTAN 25 MG TABLET PO SCH (08:40)
[2021-01-31] MEDS: APIXABAN 2.5 MG TABLET PO SCH ×2 (08:40→21:10)
[2021-01-31] MEDS: carvediloL 12.5 MG TABLET PO SCH ×2 (08:40→16:03)
[2021-01-31] MEDS: DICLOFENAC 1% GEL 100 GM TUBE TOP SCH ×3 (08:41→21:11)
[2021-01-31] MEDS: POTASSIUM CHLORIDE 20 MEQ TABLET PO SCH (08:41)
[2021-01-31] MEDS: POLYETHYLENE GLYCOL POWDER 17 GM PACK PO SCH ×3 (08:41→21:11)
[2021-01-31] MEDS: CHOLECALCIFEROL 1,000 UNIT TABLET PO SCH (08:41)
[2021-01-31] MEDS: FOLIC ACID 1 MG TABLET PO SCH (08:41)
[2021-01-31] MEDS: THIAMINE 100 MG TABLET PO SCH (08:41)
[2021-01-31] MEDS: FUROSEMIDE 40 MG/4 ML VIAL IV SCH (15:33)
[2021-01-31] MEDS: SENNA 8.6 MG TABLET PO SCH (21:10)
[2021-02-01 06:12] LABS: Basophils % 0.3 % (0.0-0.8); Hematocrit 29.7 VOL% (42.0-52.0); Hemoglobin 9.3 GM/DL (14.0-18.0); Immature Granulocytes % 0.5 %; Immature Granulocytes Absolute 0.03 #; Lymphocytes # 1.1 10*3/uL (1.4-4.0); Lymphocytes % 18.8 % (21.2-54.2); Mean Corpuscular HGB Conc 31.3 GM/DL (32-36); Mean Corpuscular Volume 107.6 FL (87-102); Mean Platelet Volume 11.3 FL (9.6-12.0); Monocytes % 14.3 % (1.7-12.7); Neutrophils % 66.1 % (38.7-73.9); Platelet Count 210 T/CUMM (130-400); Red Blood Count 2.76 MC/CUMM (3.8-5.5); Red Cell Distribution Width 14.9 % (9.3-17.3); White Blood Count 6.1 T/CUMM (4-12)
[2021-02-01 06:20] LABS: Calcium 8.8 MG/DL (8.5-10.1); Osmolality,Calculated 277.1 MOS/KG (273-304); Potassium 4.6 MMOL/L (3.5-5.1)
[2021-02-01] MEDS: ALBUTEROL/IPRATROPIUM 3 ML NEB RESP TX SCH ×4 (07:29→19:30)
[2021-02-01] MEDS: LOSARTAN 25 MG TABLET PO SCH (08:08)
[2021-02-01] MEDS: carvediloL 12.5 MG TABLET PO SCH ×2 (09:20→17:14)
[2021-02-01] MEDS: POTASSIUM CHLORIDE 20 MEQ TABLET PO SCH (09:22)
[2021-02-01] MEDS: POLYETHYLENE GLYCOL POWDER 17 GM PACK PO SCH ×2 (09:22→14:59)
[2021-02-01] MEDS: FUROSEMIDE 80 MG TABLET PO SCH ×2 (09:22→15:34)
[2021-02-01] MEDS: CHOLECALCIFEROL 1,000 UNIT TABLET PO SCH (09:22)
[2021-02-01] MEDS: FOLIC ACID 1 MG TABLET PO SCH (09:22)
[2021-02-01] MEDS: APIXABAN 2.5 MG TABLET PO SCH ×2 (09:22→21:05)
[2021-02-01] MEDS: THIAMINE 100 MG TABLET PO SCH (09:23)
[2021-02-01] MEDS: DICLOFENAC 1% GEL 100 GM TUBE TOP SCH ×3 (09:23→21:05)
[2021-02-01] MEDS: SENNA 8.6 MG TABLET PO SCH (21:05)
[2021-02-02 05:33] LABS: Basophils % 0.4 % (0.0-0.8); Hematocrit 29.6 VOL% (42.0-52.0); Hemoglobin 9.3 GM/DL (14.0-18.0); Immature Granulocytes % 0.2 %; Immature Granulocytes Absolute 0.01 #; Lymphocytes # 0.9 10*3/uL (1.4-4.0); Lymphocytes % 18.4 % (21.2-54.2); Mean Corpuscular HGB Conc 31.4 GM/DL (32-36); Mean Corpuscular Volume 105.7 FL (87-102); Mean Platelet Volume 10.9 FL (9.6-12.0); Monocytes % 14.1 % (1.7-12.7); Neutrophils % 66.9 % (38.7-73.9); Platelet Count 225 T/CUMM (130-400); Red Cell Distribution Width 15.2 % (9.3-17.3); White Blood Count 5.1 T/CUMM (4-12)
[2021-02-02 05:58] LABS: Calcium 8.9 MG/DL (8.5-10.1); Osmolality,Calculated 272.4 MOS/KG (273-304); Potassium 4.4 MMOL/L (3.5-5.1)
[2021-02-02] MEDS: ALBUTEROL/IPRATROPIUM 3 ML NEB RESP TX SCH ×5 (06:44→19:58)
[2021-02-02] MEDS: POLYETHYLENE GLYCOL POWDER 17 GM PACK PO SCH (09:03)
[2021-02-02] MEDS: CHOLECALCIFEROL 1,000 UNIT TABLET PO SCH (09:04)
[2021-02-02] MEDS: carvediloL 12.5 MG TABLET PO SCH ×2 (09:04→16:43)
[2021-02-02] MEDS: POTASSIUM CHLORIDE 20 MEQ TABLET PO SCH (09:04)
[2021-02-02] MEDS: FOLIC ACID 1 MG TABLET PO SCH (09:04)
[2021-02-02] MEDS: FUROSEMIDE 80 MG TABLET PO SCH ×2 (09:04→15:29)
[2021-02-02] MEDS: APIXABAN 2.5 MG TABLET PO SCH ×2 (09:04→20:37)
[2021-02-02] MEDS: THIAMINE 100 MG TABLET PO SCH (09:04)
[2021-02-02] MEDS: LOSARTAN 25 MG TABLET PO SCH (09:04)
[2021-02-02] MEDS: DICLOFENAC 1% GEL 100 GM TUBE TOP SCH ×3 (09:04→20:37)
[2021-02-02] MEDS: SENNA 8.6 MG TABLET PO SCH (20:37)
[2021-02-03 04:13] LABS: Basophils % 0.3 % (0.0-0.8); Hematocrit 29.2 VOL% (42.0-52.0); Hemoglobin 9.3 GM/DL (14.0-18.0); Immature Granulocytes % 0.5 %; Immature Granulocytes Absolute 0.03 #; Lymphocytes # 1.1 10*3/uL (1.4-4.0); Lymphocytes % 17.7 % (21.2-54.2); Mean Corpuscular HGB Conc 31.8 GM/DL (32-36); Mean Corpuscular Volume 105.8 FL (87-102); Mean Platelet Volume 10.8 FL (9.6-12.0); Monocytes % 15.1 % (1.7-12.7); Neutrophils % 66.4 % (38.7-73.9); Platelet Count 211 T/CUMM (130-400); Red Blood Count 2.76 MC/CUMM (3.8-5.5); White Blood Count 6.2 T/CUMM (4-12)
[2021-02-03 04:37] LABS: Calcium 8.8 MG/DL (8.5-10.1); Osmolality,Calculated 276.2 MOS/KG (273-304); Potassium 4.1 MMOL/L (3.5-5.1)
[2021-02-03] MEDS: ALBUTEROL/IPRATROPIUM 3 ML NEB RESP TX SCH ×4 (07:40→19:35)
[2021-02-03] MEDS: POLYETHYLENE GLYCOL POWDER 17 GM PACK PO SCH (10:07)
[2021-02-03] MEDS: carvediloL 12.5 MG TABLET PO SCH ×2 (10:07→18:03)
[2021-02-03] MEDS: FUROSEMIDE 80 MG TABLET PO SCH ×2 (10:07→18:03)
[2021-02-03] MEDS: LOSARTAN 25 MG TABLET PO SCH (10:07)
[2021-02-03] MEDS: APIXABAN 2.5 MG TABLET PO SCH ×2 (10:08→21:25)
[2021-02-03] MEDS: THIAMINE 100 MG TABLET PO SCH (10:08)
[2021-02-03] MEDS: FOLIC ACID 1 MG TABLET PO SCH (10:08)
[2021-02-03] MEDS: POTASSIUM CHLORIDE 20 MEQ TABLET PO SCH (10:08)
[2021-02-03] MEDS: CHOLECALCIFEROL 1,000 UNIT TABLET PO SCH (10:09)
[2021-02-03] MEDS: DICLOFENAC 1% GEL 100 GM TUBE TOP SCH ×3 (10:23→21:25)
[2021-02-03] MEDS ORDERED: TUBERCULIN SKIN TEST 0.1 ML SYRINGE INTRADERM ONE (15:00)
[2021-02-03] MEDS: SENNA 8.6 MG TABLET PO SCH (21:25)
[2021-02-04] MEDS: ALBUTEROL/IPRATROPIUM 3 ML NEB RESP TX SCH ×4 (07:59→19:35)
[2021-02-04] MEDS: LOSARTAN 25 MG TABLET PO SCH (09:00)
[2021-02-04] MEDS: FOLIC ACID 1 MG TABLET PO SCH (10:29)
[2021-02-04] MEDS: APIXABAN 2.5 MG TABLET PO SCH ×2 (10:29→21:00)
[2021-02-04] MEDS: POTASSIUM CHLORIDE 20 MEQ TABLET PO SCH (10:29)
[2021-02-04] MEDS: POLYETHYLENE GLYCOL POWDER 17 GM PACK PO SCH (10:30)
[2021-02-04] MEDS: CHOLECALCIFEROL 1,000 UNIT TABLET PO SCH (10:30)
[2021-02-04] MEDS: FUROSEMIDE 80 MG TABLET PO SCH ×2 (10:30→16:25)
[2021-02-04] MEDS: THIAMINE 100 MG TABLET PO SCH (10:30)
[2021-02-04] MEDS: DICLOFENAC 1% GEL 100 GM TUBE TOP SCH ×3 (12:03→21:00)
[2021-02-04] MEDS: carvediloL 12.5 MG TABLET PO SCH ×2 (13:52→17:33)
[2021-02-04] MEDS: SENNA 8.6 MG TABLET PO SCH (21:00)
[2021-02-05] MEDS: ALBUTEROL/IPRATROPIUM 3 ML NEB RESP TX SCH ×4 (07:32→20:40)
[2021-02-05] MEDS: carvediloL 12.5 MG TABLET PO SCH (08:41)
[2021-02-05] MEDS: FUROSEMIDE 80 MG TABLET PO SCH ×2 (08:41→17:50)
[2021-02-05] MEDS: APIXABAN 2.5 MG TABLET PO SCH ×2 (08:41→20:49)
[2021-02-05] MEDS: LOSARTAN 25 MG TABLET PO SCH (08:41)
[2021-02-05] MEDS: THIAMINE 100 MG TABLET PO SCH (08:42)
[2021-02-05] MEDS: FOLIC ACID 1 MG TABLET PO SCH (08:42)
[2021-02-05] MEDS: POLYETHYLENE GLYCOL POWDER 17 GM PACK PO SCH (08:42)
[2021-02-05] MEDS: CHOLECALCIFEROL 1,000 UNIT TABLET PO SCH (08:42)
[2021-02-05] MEDS: POTASSIUM CHLORIDE 20 MEQ TABLET PO SCH (08:42)
[2021-02-05] MEDS: DICLOFENAC 1% GEL 100 GM TUBE TOP SCH ×3 (08:43→20:49)
[2021-02-05] MEDS: carvediloL 3.125 MG TABLET PO SCH (17:49)
[2021-02-05] MEDS: SENNA 8.6 MG TABLET PO SCH (20:48)
[2021-02-06] MEDS: ALBUTEROL/IPRATROPIUM 3 ML NEB RESP TX SCH ×4 (07:39→20:05)
[2021-02-06] MEDS: POLYETHYLENE GLYCOL POWDER 17 GM PACK PO SCH (08:39)
[2021-02-06] MEDS: LOSARTAN 25 MG TABLET PO SCH (08:40)
[2021-02-06] MEDS: carvediloL 3.125 MG TABLET PO SCH ×2 (08:40→17:21)
[2021-02-06] MEDS: POTASSIUM CHLORIDE 20 MEQ TABLET PO SCH (08:40)
[2021-02-06] MEDS: APIXABAN 2.5 MG TABLET PO SCH ×2 (08:40→21:11)
[2021-02-06] MEDS: FUROSEMIDE 80 MG TABLET PO SCH ×2 (08:40→17:21)
[2021-02-06] MEDS: CHOLECALCIFEROL 1,000 UNIT TABLET PO SCH (08:40)
[2021-02-06] MEDS: THIAMINE 100 MG TABLET PO SCH (08:40)
[2021-02-06] MEDS: metOLazone 5 MG TABLET PO SCH (08:41)
[2021-02-06] MEDS: FOLIC ACID 1 MG TABLET PO SCH (08:41)
[2021-02-06] MEDS: DICLOFENAC 1% GEL 100 GM TUBE TOP SCH ×3 (09:00→21:12)
[2021-02-06] MEDS: SENNA 8.6 MG TABLET PO SCH (21:11)
[2021-02-07] MEDS: ALBUTEROL/IPRATROPIUM 3 ML NEB RESP TX SCH ×3 (07:35→14:58)
[2021-02-07] MEDS: THIAMINE 100 MG TABLET PO SCH (09:31)
[2021-02-07] MEDS: POTASSIUM CHLORIDE 20 MEQ TABLET PO SCH (09:31)
[2021-02-07] MEDS: CHOLECALCIFEROL 1,000 UNIT TABLET PO SCH (09:31)
[2021-02-07] MEDS: carvediloL 3.125 MG TABLET PO SCH ×2 (09:31→16:26)
[2021-02-07] MEDS: POLYETHYLENE GLYCOL POWDER 17 GM PACK PO SCH (09:31)
[2021-02-07] MEDS: FUROSEMIDE 80 MG TABLET PO SCH ×2 (09:32→16:26)
[2021-02-07] MEDS: APIXABAN 2.5 MG TABLET PO SCH (09:32)
[2021-02-07] MEDS: metOLazone 5 MG TABLET PO SCH (09:32)
[2021-02-07] MEDS: FOLIC ACID 1 MG TABLET PO SCH (09:32)
[2021-02-07] MEDS: LOSARTAN 25 MG TABLET PO SCH (09:32)
[2021-02-07] MEDS: DICLOFENAC 1% GEL 100 GM TUBE TOP SCH ×2 (09:32→16:26)
[2021-02-07 15:44] VITALS: BP 88/49
== END 2021-02-07 19:38 | DRG 682 ==
LOC: EDBD → EDUNIT# → N.ED 16:47 → N.EDINP 16:47 → SUATTDRO 20:48 → N.EDINP 22:56 → N.3E 23:02 → SUATTDRO 01-31 10:40
PROVIDERS: ADMIT Internal Medicine; ATTEND Family Medicine